=== PATIENT | female | born 1990 | race Hispanic/Latino ===

== ENCOUNTER 2016-10-31 20:51 | Emergency (ER) | payer OTHER ==
[2016-10-31 22:00] LABS: MAGNESIUM 1.8 MG/DL (1.6-2.3)
[2016-10-31 22:02] LABS: SQUAMOUS EPITHIAL < 1 /hpf (0-5); URINE BACTERIA OCC (<OCC); URINE BILIRUBIN NEGATIVE (NEGATIVE); URINE BLOOD NEGATIVE (NEGATIVE); URINE CLARITY CLEAR (Clear); URINE COLOR STRAW (YELLOW); URINE GLUCOSE (UA) NEG (Normal); URINE LEUKOCYTE ESTERASE NEG Leu/uL (Negative); URINE NITRATE NEGATIVE (NEGATIVE); URINE PROTEIN NEGATIVE (NEGATIVE); URINE UROBILINOGEN 0.2-1.0 mg/dL (0.2-1.0)
[2016-11-01 00:51] LABS: HEMOGLOBIN 14.7 g/dL (12.0-16.0); MEAN CELL VOLUME 90.3 fl (81.0-99.0); MEAN CORPUSCULAR HGB CONC 33.2 g/dL (33.0-37.0); RBC 4.91 Mil/uL (3.80-5.20); RED CELL DISTRIBUTION WIDTH 12.8 % (11.5-14.5); WHITE BLOOD COUNT 8.8 K/uL (4.8-10.8)
[2016-11-01 01:08] LABS: ALB/GLOB RATIO 1.7 (1.0-2.1); ALBUMIN 4.5 g/dL (3.5-5.0); ALT/SGPT 42 U/L (9-52); AST/SGOT 39 U/L (14-36); BLOOD UREA NITROGEN 16 mg/dl (7-17); CALCIUM 9.7 mg/dL (8.4-10.2); GFR AFRICAN-AMERICAN > 60; GFR NON-AFRICAN AMERICAN > 60
[2016-11-01 01:39] VITALS: BP 119/76; PULSE 65; RESP 14; TEMP 98.4
[2016-11-01 01:49] VITALS: O2SAT 100
--- NOTE | 2016-11-01 01:49 | ED PDOC ---
Syncope/Near Syncope/Dizziness Time Seen by Provider: 10/31/16 21:12 Chief Complaint (Nursing): Dizziness/Lightheaded Past Medical History Vital Signs: Last Vital Signs Temp 97.9 F 10/31/16 21:03 Pulse 61 10/31/16 21:03 Resp 16 10/31/16 21:03 BP 143/83 10/31/16 21:03 Pulse Ox 100 10/31/16 21:03 - Allergies Allergies/Adverse Reactions: Allergies Allergy/AdvReac Type Severity Reaction Status Date / Time No Known Allergies Allergy Verified 10/31/16 21:02 - Laboratory Results Result Diagrams: 11/01/16 00:20 11/01/16 00:20 - ECG O2 Sat by Pulse Oximetry: 100 Disposition - Clinical Impression Clinical Impression: Dizziness - Disposition Referrals: Alessio Ivy MD [Staff Provider] - Disposition: Routine/Home Disposition Time: 01:34 Condition: GOOD Instructions: Dizziness (ED)
--- NOTE | 2016-11-01 07:36 | CT ---
PROCEDURE: CT HEAD WITHOUT CONTRAST. HISTORY: near syncope, nausea, dizziness COMPARISON: None available. TECHNIQUE: Axial computed tomography images were obtained through the head/brain without intravenous contrast. Radiation dose: Total exam DLP = 842 mGy-cm. This CT exam was performed using one or more of the following dose reduction techniques: Automated exposure control, adjustment of the mA and/or kV according to patient size, and/or use of iterative reconstruction technique. FINDINGS: HEMORRHAGE: No intracranial hemorrhage. BRAIN: No mass effect or edema. No atrophy or chronic microvascular ischemic changes. VENTRICLES: Unremarkable. No hydrocephalus. CALVARIUM: Unremarkable. PARANASAL SINUSES: Unremarkable as visualized. No significant inflammatory changes. MASTOID AIR CELLS: Unremarkable as visualized. No inflammatory changes. OTHER FINDINGS: None. IMPRESSION: Normal CT of the Head.
--- NOTE | 2016-11-03 07:01 | CARD ---
APPROVED REPORT EKG Measurement Heart [id number] CO 150P-2 [id number] <Conclusion> Sinus bradycardia Otherwise normal ECG
== END 2016-11-01 01:42 | disposition home or self-care (01) ==
LOC: H.ER 20:51
DX: R42 Dizziness and giddiness (principal)